=== PATIENT | female | born 1945 | race Caucasian/White ===

== ENCOUNTER 2019-08-14 10:24 | Day surgery (SDC) | payer MEDICARE, BC ==
[2019-08-14] MEDS ORDERED: KETOROLAC 30 MG/ML VIAL IVP ONE (10:25)
[2019-08-14] MEDS ORDERED: FENTANYL PF 100MCG/2ML VIAL IV ONE (10:25)
[2019-08-14] MEDS ORDERED: ONDANSETRON HCL IV 4 MG/2 ML VIAL IVP ONE (10:25)
[2019-08-14] MEDS ORDERED: PROPOFOL 10 MG/ML VIAL IV ONE (10:25)
[2019-08-14] MEDS ORDERED: MIDAZOLAM HCL 2MG/2ML VIAL IV ONE (10:25)
[2019-08-14] MEDS ORDERED: LIDOCAINE 2% MDV (20MG/ML) 20ML VIAL IV ONE (10:25)
[2019-08-14] MEDS ORDERED: SEVOFLURANE 250 ML INH ONE (10:25)
[2019-08-14] MEDS ORDERED: SCOPOLAMINE 1 PATCH TDSY TD ONE (10:30)
[2019-08-14] MEDS ORDERED: FAMOTIDINE 20MG TABLET PO ONE (10:30)
[2019-08-14] MEDS ORDERED: ACETAMINOPHEN 1,000 MG/100 ML BTL IVPB ONE (10:30)
[2019-08-14] MEDS ORDERED: METOCLOPRAMIDE 10 MG TABLET PO ONE (10:30)
[2019-08-14] MEDS ORDERED: RINGERS SOLUTION,LACTATED 1,000 ML IV ONE (10:55)
[2019-08-14] MEDS ORDERED: BUPIVACAINE 0.25% W/EPI MPF 30ML VIAL SQ ONE (12:44)
--- NOTE | 2019-08-14 14:18 | Operative Note ---
DATE OF SURGERY: 08/14/2019 SURGEON: Ciro Hawkins D.O. REFERRING PHYSICIAN: Yulisa Brink D.O. PREOPERATIVE DIAGNOSIS: 1. TORN MEDIAL MENISCUS OF THE LEFT KNEE. 2. CHONDROMALACIA OF THE LEFT KNEE. POSTOPERATIVE DIAGNOSIS: 1. TORN MEDIAL AND LATERAL MENISCUS OF THE LEFT KNEE. 2. CHONDROMALACIA OF THE MEDIAL FEMORAL CONDYLE, LATERAL FEMORAL CONDYLE, PATELLA AND TROCHLEA LEFT KNEE. 3. CHONDROCALCINOSIS LEFT KNEE. OPERATION: 1. ARTHROSCOPIC PARTIAL MEDIAL AND LATERAL MENISCECTOMY OF THE LEFT KNEE. 2. ARTHROSCOPIC CHONDROPLASTY OF THE MEDIAL FEMORAL CONDYLE, PATELLA AND LATERAL FEMORAL CONDYLE LEFT KNEE. DESCRIPTION: This 74-year-old female was taken to the Operating Room and placed in the supine position on the operating room table. A general anesthetic was administered and the left upper extremity was elevated, exsanguinated, tourniquet inflated to 300 mmHg, arthroscopic knee alonso applied, left knee prepped with Hibiclens and draped in the usual sterile fashion. An inferolateral portal was established for the 4 mm arthroscope, and initial evaluation of the joint demonstrated chondrocalcinosis in the suprapatellar pouch. The patella demonstrated Grade 2 changes throughout and Grade 2 changes also noted in the trochlea, both demonstrating chondrocalcinosis which was present everywhere within the joint. Unstable fragments of articular cartilage were present at the patellofemoral joint and these were probed throughout an inferomedial portal and subsequently chondroplasty was performed to stabilize the articular cartilage there. The medial compartment was entered and an extensive tear of the medial meniscus was present with extensive chondrocalcinosis, partly degenerative tearing was also identified. The tear extended from about the 9:00 o'[address] position all the way around to the posterior horn to the posterior attachment. This was debrided with a rotating shaver, this tear did extend back to the meniscal synovial junction posteriorly at about the 1:00 o'clock position. The root was still intact. The meniscus, however, was seen to be torn away from the wall posteriorly. We debrided the torn portions of the meniscus and re-evaluated and probed demonstrating stable meniscus. There was Grade 3 chondromalacia of the medial femoral condyle with marked chondrocalcinosis being noted. The entire weight bearing surface of the medial femoral condyle demonstrated Grade 3 changes and we debrided loose fragment of articular cartilage there. The intercondylar notch was examined and other than the chondrocalcinosis otherwise appeared normal. The lateral compartment was entered and tearing of the lateral meniscus was also evident. This appeared to be a more degenerative type tear from erosion from the chondrocalcinosis, this extended all the way from the posterior attachment all the way around to about the 4:00 o'clock position. Utilizing the basket forceps and rotating shaver this was trimmed and stabilized and reprobed and confirmed to be stable. We did demonstrate extensive calcification of the popliteus tendon also. Grade 2 chondromalacia of the entire weight bearing surface of the lateral femoral condyle was also present and speckled with chondrocalcinosis. Loose fragments were debrided with the rotating shaver. The joint was then copiously irrigated and suctioned and all areas were re-examined. No additional findings were present. The joint was suctioned, the instruments were removed, the portals were infiltrated with 0.25% Marcaine with Epinephrine, sterile dressings applied, tourniquet and knee alonso were released, and the patient was taken to the Recovery Room in satisfactory condition. GROSS PATHOLOGY: The patient demonstrated complex tear of the posterior horn of the medial meniscus and degenerative tearing of the lateral meniscus, extensive chondrocalcinosis and chondromalacia was present as described above. Grade 3 changes noted in the medial femoral condyle, Grade 2 changes noted in all other locations. JOB NUMBER: [id number] MTDD
== END 2019-08-14 13:46 | disposition home or self-care (01) ==
LOC: SUR 10:24
PROVIDERS: ATTEND Orthopaedic Surgery
DX: S83.232A Complex tear of medial meniscus, current injury, left knee, initial encounter (principal); S83.282A Other tear of lateral meniscus, current injury, left knee, initial encounter; M94.262 Chondromalacia, left knee; M11.262 Other chondrocalcinosis, left knee; J44.9 Chronic obstructive pulmonary disease, unspecified; E78.00 Pure hypercholesterolemia, unspecified
CPT/HCPCS: J1885; J2405; J7120